=== PATIENT | female | born 1975 | race Caucasian/White ===

== ENCOUNTER 2020-07-01 09:18 | Outpatient (CLI) | payer OTHER, SELFPAY ==
--- NOTE | 2020-07-01 09:23 | MM_ITS ---
WS: [id number] BILATERAL DIGITAL SCREENING MAMMOGRAPHY WITH CAD CLINICAL INFORMATION: SCREENING HISTORY: Screening mammogram. No current complaints. COMPARISON: May 19, 2019 TECHNIQUE: Bilateral CC and MLO views. FINDINGS: The breasts are composed of heterogeneous fibroglandular density tissue, which can limit the detectio n of small underlying mass lesions. No suspicious mass, asymmetry, calcifications, or architectural d istortion. No evidence of malignancy. A few axillary tail lymph nodes. MM/[id number] IMPRESSION: BI-RADS: 2-Benign FOLLOW UP: 1 Year Follow-up Recommend return to annual screening mammography.
== END 2020-07-01 09:19 | disposition home or self-care (01) ==
PROVIDERS: Family Provider Family Medicine; PCP Family Medicine; Visit Provider Family Medicine
DX: Z12.31 Encounter for screening mammogram for malignant neoplasm of breast (principal)
CPT/HCPCS: 77067

== ENCOUNTER → 2021-04-21 11:44 | Outpatient (BNVA) | payer OTHER, SELFPAY | PROVIDERS: Family Provider Family Medicine; PCP Family Medicine; Visit Provider Surgery | DX: Z20.822 Contact with and (suspected) exposure to COVID-19 (principal) | CPT/HCPCS: 87635 ==

== ENCOUNTER 2021-04-24 09:05 | Day surgery (SDC) | payer OTHER, SELFPAY ==
[2021-04-21 14:10] VITALS: BMI 48.4
--- NOTE | 2021-04-24 09:14 | ANES.PREANE2 ---
Pre-Anesthetic Assessment Pre-Anesthetic Assessment: Height/Weight: Height 1.63 m Weight 127.913 kg Preop Diagnosis: hematochezia Proposed Procedure: Operation Date: 04/24/21 10:30 Proposed Procedures p Colonoscopy 98568 K92.1(Not Applicable) - Tommy Sampson MD Familial anesthetic complications: PONV w/ her one surgery (appendectomy) Was Beta Jennie taken within 24 hours: N/A Was Clonidine taken within 24 hours: N/A Last intake: > 8 hrs Social: Social History: Tobacco and No alcohol Exam: Pre-Anes Outpt Exam: alert, oriented x 3, clear to auscultation bilaterally and regular rate & rhythm Airway: MP: 3 Dentition: Full Additional comments: crowns Pulmonary: Pulmonary: Cough (dry smoker's cough) CV/HEM: CV/HEM: HTN Metabolic: Metabolic: DM, Hyperlipidemia and Morbid obesity Anesthetic Plan: ASA status: 3 Anesthesia: MAC Risk of > 500 ml blood loss (7ml/kg in children): No PFSH Anesthesia PFSH: Medical History (Updated 04/04/21 @ 11:35 by Tommy Sampson MD) Hemorrhoids Hyperlipidemia Hypertension Type 2 diabetes mellitus Surgical History (Updated 04/04/21 @ 10:37 by Tommy Sampson MD) History of appendectomy Family History (Updated 04/04/21 @ 10:28 by Yamileth Kaiser) Other CAD (coronary artery disease) Diabetes Lung disease Social History (Updated 04/04/21 @ 10:29 by Yamileth Kaiser) Smoking and tobacco status: current every day smoker Alcohol intake: current Alcohol intake frequency: holidays/special occasions only History of recent travel: No Data Anesthesia Cardiac Studies: No Data to Display
--- NOTE | 2021-04-24 09:50 | W.PM.OPSUD ---
Surgery/Procedure H&P Update DATE OF PROCEDURE: April 24, 2021 DATE H&P PERFORMED: 04/04/21 H&P UPDATE INFORMATION: I have reviewed H&P completed within last 30 days, I have examined patient prior to procedure and No changes to prior documentation PREOP DIAGNOSIS: screening colonoscopy PLANNED PROCEDURE: Operation Date: 04/24/21 10:30 Proposed Procedures p Colonoscopy 18595 K92.1(Not Applicable) - Tommy Sampson MD
[2021-04-24 09:53] VITALS: BP 171/99; PULSE 83; RESP 18; TEMP 36.5; O2SAT 95
[2021-04-24 10:00] LABS: OR HCG Qualitative Urine Negative (Negative)
[2021-04-24] MEDS: sodium chloride 0.9% 1,000 ML 30 ML IV (10:06)
[2021-04-24 10:23] LABS: Glucose Point of Care 212 mg/dL (70-110)
[2021-04-24 11:52] VITALS: BP 138/82; PULSE 71; RESP 16; TEMP 36.1; O2SAT 96
[2021-04-24 12:00] VITALS: BP 155/101; PULSE 70; RESP 18; O2SAT 96
== END 2021-04-24 12:22 | disposition home or self-care (01) ==
PROVIDERS: Anesthesiology; PCP Family Medicine; Visit Provider Surgery
PROC: 0DJD8ZZ Inspection of Lower Intestinal Tract, Via Natural or Artificial Opening Endoscopic (ICD-10-PCS; CPT 45378; principal; 2021-04-24 10:30)
DX: K92.1 Melena (principal); K57.30 Diverticulosis of large intestine without perforation or abscess without bleeding; K64.8 Other hemorrhoids; I10 Essential (primary) hypertension; E11.9 Type 2 diabetes mellitus without complications; E78.5 Hyperlipidemia, unspecified; E66.01 Morbid (severe) obesity due to excess calories; Z68.42 Body mass index [BMI] 45.0-49.9, adult; Z82.49 Family history of ischemic heart disease and other diseases of the circulatory system; Z83.3 Family history of diabetes mellitus; F17.210 Nicotine dependence, cigarettes, uncomplicated
CPT/HCPCS: 36416; 45378; 81025; 82962; 84703; 96360; 96361; J2704; J7030

== ENCOUNTER → 2021-05-29 12:50 | Outpatient (BNVA) | payer OTHER, SELFPAY | PROVIDERS: PCP Family Medicine; Visit Provider Surgery | DX: Z11.52 Encounter for screening for COVID-19 (principal); Z20.822 Contact with and (suspected) exposure to COVID-19 | CPT/HCPCS: 87635 ==

== ENCOUNTER 2021-06-02 07:53 | Day surgery (SDC) | payer OTHER, SELFPAY ==
[2021-05-30 15:57] VITALS: BMI 48.7
--- NOTE | 2021-06-02 08:07 | W.PM.OPSFHP ---
Same Day Surgery H&P Indication for Procedure/HPI DATE OF PROCEDURE: June 02, 2021 CHIEF COMPLAINT/INDICATIONFOR SURGICAL PROCEDURE: hemorrhoidectomy PREOP DIAGNOSIS: grade 4 hemorrhoids PLANNED PROCEDRUE: Operation Date: 06/02/21 09:10 Proposed Procedures p Hemorroidectomy 81851 K64.9(Not Applicable) - Tommy Sampson MD Medications/Allergies* Home Medications Medication Instructions Recorded Confirmed Type fluoxetine 20 mg capsule 40 mg PO DAILY 04/04/21 06/02/21 History glimepiride 1 mg tablet 1 mg PO BID tab 04/04/21 06/02/21 History metformin 500 mg tablet 1,000 mg PO BID tab 04/04/21 06/02/21 History simvastatin 10 mg tablet 10 mg PO DAILY 04/04/21 06/02/21 History Allergies/Adverse Reactions Allergy/AdvReac Type Severity Reaction Status Date / Time No Known Allergies Allergy Verified 05/30/21 15:50 Pertinent History/Comorbid Conditions* Medical History (Updated 04/04/21 @ 11:35 by Tommy Sampson MD) Hemorrhoids Hyperlipidemia Hypertension Type 2 diabetes mellitus Surgical History (Updated 04/24/21 @ 11:53 by Tommy Sampson MD) History of appendectomy Status post colonoscopy (04/24/21) Family History (Updated 04/04/21 @ 10:27 by Yamileth Kaiser) Diabetes CAD (coronary artery disease) Lung disease Social History Alcohol intake: current Alcohol intake frequency: holidays/special occasions only History of recent travel: No Pertinent Exam Findings alert, oriented x 3 and regular rate & rhythm Recommendations Surgery/Procedure today Coding Level of Care Code Acute Pharmacy Sales Assistant for [employer]
[2021-06-02 08:11] VITALS: BP 152/94; PULSE 77; RESP 18; TEMP 36.3; O2SAT 96
[2021-06-02 08:20] LABS: OR HCG Qualitative Urine Negative (Negative)
[2021-06-02 08:32] LABS: Glucose Point of Care 207 mg/dL (70-110)
[2021-06-02] MEDS: sodium chloride 0.9% 1,000 ML 30 ML IV (08:39)
[2021-06-02] MEDS: insulin regular-human 100 units/1 mL 10 UNIT IVP (08:54)
--- NOTE | 2021-06-02 09:12 | ANES.PREANE2 ---
Pre-Anesthetic Assessment Pre-Anesthetic Assessment: Height/Weight: Height 1.63 m Weight 128.82 kg Temp Pulse Resp BP Pulse Ox 97.4 F L 77 18 152/94 96 06/02/21 08:11 06/02/21 08:11 06/02/21 08:11 06/02/21 08:11 06/02/21 08:11 Preop Diagnosis: grade 4 hemorrhoids Proposed Procedure: Operation Date: 06/02/21 09:10 Proposed Procedures p Hemorroidectomy 18490 K64.9(Not Applicable) - Tommy Sampson MD Familial anesthetic complications: None Was Beta Jennie taken within 24 hours: N/A Was Clonidine taken within 24 hours: N/A Last intake: Intake Last Liquid Date 06/02/21 Last Liquid Time 00:00 Last Solid Date 06/02/21 Last Solid Time 00:00 Social: Social History: Tobacco and No alcohol Exam: Pre-Anes Outpt Exam: alert, oriented x 3, clear to auscultation bilaterally and regular rate & rhythm Airway: MP: 3 Dentition: Full Pulmonary: Pulmonary: Sleep apnea (?) CV/HEM: CV/HEM: HTN Metabolic: Metabolic: DM, Hyperlipidemia and Morbid obesity Anesthetic Plan: ASA status: 3 Anesthesia: General Risk of > 500 ml blood loss (7ml/kg in children): No Meds/Allergies Current Medications: Current Medications Generic Name Dose Route Start Last Admin Trade Name Freq PRN Reason Stop Dose Admin Sodium Chloride 1,000 mls @ 30 ml s/hr 06/02/21 08:00 06/02/21 08:39 Sodium Chloride 0.9% IV 06/03/21 07:59 30 mls/hr .Q24H MARICARMEN Administration PFSH Anesthesia PFSH: Medical History (Updated 04/04/21 @ 11:35 by Tommy Sampson MD) Hemorrhoids Hyperlipidemia Hypertension Type 2 diabetes mellitus Surgical History (Updated 04/24/21 @ 11:53 by Tommy Sampson MD) History of appendectomy Status post colonoscopy (04/24/21) Family History (Updated 04/04/21 @ 10:28 by Yamileth Kaiser) Other CAD (coronary artery disease) Diabetes Lung disease Social History (Updated 04/04/21 @ 10:29 by Yamileth Kaiser) Alcohol intake: current Alcohol intake frequency: holidays/special occasions only History of recent travel: No Data Anesthesia Other Labs: Laboratory Results - last 48 hr 06/02/21 06/02/21 08:18 08:28 POC Glucose 207 H Urine HCG, Qual Negative Cardiac Studies: No Data to Display
[2021-06-02 10:26] VITALS: BP 126/77; PULSE 78; RESP 18; TEMP 36.3; O2SAT 92
[2021-06-02 10:30] VITALS: BP 126/80; PULSE 78; RESP 18; TEMP 36.3; O2SAT 92
[2021-06-02 10:35] VITALS: BP 122/77; PULSE 73; RESP 17; O2SAT 96
[2021-06-02 10:41] LABS: Glucose Point of Care 241 mg/dL (70-110)
[2021-06-02 10:51] VITALS: BP 140/89; PULSE 71; RESP 18; TEMP 36.2; O2SAT 92
[2021-06-02] MEDS: HYDROcodone-acetaminophen 5-325 mg Tablet 1 TAB PO (11:10)
[2021-06-02 11:16] VITALS: BP 141/92; PULSE 74; RESP 18; TEMP 36.3; O2SAT 94
--- NOTE | 2021-06-02 11:45 | PM.OP ---
Operative Report Date of procedure: June 02, 2021 Pre-op Diagnosis: grade 4 hemorrhoids Post-op Diagnosis: Grade 4 hemorrhoids x3 Procedure Done: Hemorrhoidectomy x3 Specimens removed/disposition: Hemorrhoidal tissue Surgeon: Tommy Sampson Anesthesia: General Condition: stable Disposition: PACU Procedure: The patient was taken to the operating room and intubated under general anesthesia after IV antibiotic had been administered and placed in a prone jackknife position. The buttocks were taped apart. The perineum was prepped and draped in a sterile manner. A perianal block was performed using 10 cc of Exparel mixed with 10 cc of 0.5% Marcaine mixed with 10 cc of saline. Anoscope was introduced to examine the rectum and anal canal and 3 hemorrhoid pedicles were identified. The pedicle on the right side was grasped with Allis clamps and a skin incision was made from the perianal skin to the anal verge and the plane identified superficial to the internal sphincter muscle and the external and internal hemorrhoids were excised with an energy device. The pedicle on the left side was grasped with Allis clamps and a skin incision was made from the perianal skin to the anal verge and the plane identified superficial to the internal sphincter muscle and the external and internal hemorrhoids were excised with an energy device. The pedicle on the anterior aspect was grasped with Allis clamps and a skin incision was made from the perianal skin to the anal verge and the plane identified superficial to the internal sphincter muscle and the external and internal hemorrhoids were excised with an energy device. Hemostasis ensured and a Adaptic gauze soaked in Vaseline and placed within the anal canal. Dressings were applied and the patient was extubated and transferred to recovery room in stable condition.
--- NOTE | 2021-06-02 14:50 | ANE.PACU2 ---
Inpatient post-anesthesia follow up: Airway intact: Yes Vital signs: Temperature 97.3 F Pulse Rate 74 Respiratory Rate 18 Blood Pressure 141/92 Pulse Oximetry 94 Oxygen Delivery Me thod Room Air Oxygen Flow Rate 3 Fraction of Inspir ed Oxygen Hydration adequate: Yes Nausea and vomiting: No Pain level: 2 Mental status: Baseline
== END 2021-06-02 11:25 | disposition home or self-care (01) ==
PROVIDERS: Anesthesiology; PCP Family Medicine; Visit Provider Surgery
PROC: (CPT 46260; principal; 2021-06-02 09:00)
DX: K64.3 Fourth degree hemorrhoids (principal); I10 Essential (primary) hypertension; E11.9 Type 2 diabetes mellitus without complications; Z79.84 Long term (current) use of oral hypoglycemic drugs; Z90.89 Acquired absence of other organs; Z83.3 Family history of diabetes mellitus
CPT/HCPCS: 46260; 36416; 82962; 84703; 88304; C9290; J0690; J1815; J2405; J2704; J2710; J3010; J3490; J7030

== ENCOUNTER 2021-06-27 20:00 | Outpatient (CLI) | payer OTHER, SELFPAY | END 2021-06-27 20:01 | disposition home or self-care (01) | LOC: SLEEP 06-28 04:22 | PROVIDERS: PCP Family Medicine; Visit Provider Family Medicine | DX: G47.10 Hypersomnia, unspecified (principal); R06.83 Snoring; R53.83 Other fatigue; G47.33 Obstructive sleep apnea (adult) (pediatric) | CPT/HCPCS: 95810 ==

== ENCOUNTER 2021-07-15 11:57 | Outpatient (CLI) | payer OTHER, SELFPAY ==
--- NOTE | 2021-07-15 12:02 | MM_ITS ---
WS: [id number] BILATERAL SCREENING DIGITAL MAMMOGRAM WITH CAD HISTORY: SCREENING COMPARISON: 07/01/2020 and 05/19/2019 Bilateral CC and MLO views submitted. Computer aided detection analyzed. Breast composition: The breasts are heterogeneously dense, which may obscure small masses. No suspici ous masses, microcalcifications or architectural distortion. MM/[place] [id number] IMPRESSION: BI-RADS: 1-Negative FOLLOW UP: 1 Year Follow-up
== END 2021-07-15 11:58 | disposition home or self-care (01) ==
LOC: RADSHAW 12:02
PROVIDERS: PCP Family Medicine; Visit Provider Family Medicine
DX: Z12.31 Encounter for screening mammogram for malignant neoplasm of breast (principal)
CPT/HCPCS: 77067

== ENCOUNTER 2022-06-11 20:00 | Outpatient (CLI) | payer OTHER, SELFPAY | END 2022-06-11 20:01 | disposition home or self-care (01) | LOC: SLEEP 06-12 06:37 | PROVIDERS: PCP Family Medicine; Visit Provider Family Medicine | DX: G47.33 Obstructive sleep apnea (adult) (pediatric) (principal) | CPT/HCPCS: 95811 ==

== ENCOUNTER 2022-07-20 12:07 | Outpatient (CLI) | payer OTHER, SELFPAY ==
--- NOTE | 2022-07-20 12:13 | MM_ITS ---
WS: [id number] BILATERAL SCREENING DIGITAL TOMOSYNTHESIS MAMMOGRAM WITH CAD HISTORY: SCREENING COMPARISON: 07/15/2021, 07/01/2020 and 05/19/2019 Bilateral CC and MLO views with tomosynthesis and synthetic mammography submitted. Computer aided det ection analyzed. Breast composition: The breasts are heterogeneously dense, which may obscure small masses. No suspici ous masses, microcalcifications or architectural distortion. Asymmetries in the anterior LEFT breast are stable. MM/[place] [id number] IMPRESSION: BI-RADS: 2-Benign FOLLOW UP: 1 Year Follow-up
== END 2022-07-20 12:08 | disposition home or self-care (01) ==
LOC: RAD 12:08
PROVIDERS: PCP Family Medicine; Visit Provider Family Medicine
DX: Z12.31 Encounter for screening mammogram for malignant neoplasm of breast (principal)
CPT/HCPCS: 77063; 77067

== ENCOUNTER 2023-12-14 09:26 | Outpatient (CLI) | payer OTHER, SELFPAY ==
--- NOTE | 2023-12-14 09:30 | MM_ITS ---
WS: [id number] BILATERAL 3D TOMOSYNTHESIS DIGITAL SCREENING MAMMOGRAPHY WITH CAD CLINICAL INFORMATION: SCREENING HISTORY: Screening mammogram. No current complaints. COMPARISON: 2022 TECHNIQUE: Bilateral CC and MLO views. FINDINGS: The breasts are composed of heterogeneous fibroglandular density tissue, which can limit the detectio n of small underlying mass lesions. Few incidental punctate calcifications. Clustered calcifications anterior RIGHT breast. Recommend spot modification views in further evaluation. MM/[place] [id number] IMPRESSION: BI-RADS: 0-Incomplete: Need additional imaging evaluation FOLLOW UP: Need Additional Imaging Clustered calcifications anterior RIGHT breast. Recommend spot modification vie ws in further evaluation.
== END 2023-12-14 09:27 | disposition home or self-care (01) ==
LOC: MOBLMAM 09:29
PROVIDERS: PCP Family Medicine; Visit Provider Family Medicine
DX: Z12.11 Encounter for screening for malignant neoplasm of colon (principal); R92.323 Mammographic fibroglandular density, bilateral breasts
CPT/HCPCS: 77063; 77067

== ENCOUNTER 2024-01-06 14:55 | Outpatient (CLI) | payer OTHER, SELFPAY ==
--- NOTE | 2024-01-06 15:00 | MM_ITS ---
WS: [id number] RIGHT 3D TOMOSYNTHESIS DIGITAL MAMMOGRAPHY WITH CAD CLINICAL INFORMATION: ABNORMAL MAMMOGRAM HISTORY: Additional views calcifications. COMPARISON: 2023 TECHNIQUE: 3 views of the right breast were obtained. FINDINGS: The right breast is composed of heterogeneous fibroglandular density tissue, which can limit the dete ction of small underlying mass lesions. Again seen are the clustered calcifications anterior RIGHT br east. These are very faint and punctate in appearance today. Recommend 6-month follow-up to confirm s tability. MM/[place] [id number] IMPRESSION: BI-RADS: 3-Probably Benign FOLLOW UP: 6 Month Follow-up Recommend 6-month follow-up RIGHT breast diagnostic mammography with spot magni fication views.
== END 2024-01-06 14:56 | disposition home or self-care (01) ==
PROVIDERS: PCP Family Medicine; Visit Provider Family Medicine
DX: R92.8 Other abnormal and inconclusive findings on diagnostic imaging of breast (principal); R92.333 Mammographic heterogeneous density, bilateral breasts; R92.1 Mammographic calcification found on diagnostic imaging of breast
CPT/HCPCS: 77061; G0279

== ENCOUNTER 2024-07-20 09:16 | Outpatient (CLI) | payer OTHER, SELFPAY ==
--- NOTE | 2024-07-20 09:29 | MM_ITS ---
WS: [id number] RIGHT 3D TOMOSYNTHESIS DIGITAL MAMMOGRAPHY WITH CAD CLINICAL INFORMATION: 6 MO FU CALCS HISTORY: 6-month follow-up COMPARISON: 2023 TECHNIQUE: 3 views of the right breast were obtained. FINDINGS: The right breast is composed of heterogeneous fibroglandular density tissue, which can limit the dete ction of small underlying mass lesions. Again seen are the clustered calcifications anterior RIGHT br east. These are very faint and punctate in appearance. These are unchanged since 12/14/2023. Recommend additional 6-month follow-up RIGHT breast diagnostic mammography with spot magnification views. MM/MM diag RT tomosynthesis [id number] IMPRESSION: DENSITY: The breasts are heterogeneously dense, which may obscure small masses. BI-RADS: 3 - Probably Benign FOLLOW UP: 6 Month Follow-up Recommend 6-month follow-up RIGHT breast diagnostic mammography with spot magni fication views.
== END 2024-07-20 09:17 | disposition home or self-care (01) ==
LOC: RAD 09:18
PROVIDERS: PCP Family Medicine; Visit Provider Family Medicine
DX: R92.8 Other abnormal and inconclusive findings on diagnostic imaging of breast (principal); R92.333 Mammographic heterogeneous density, bilateral breasts; R92.1 Mammographic calcification found on diagnostic imaging of breast
CPT/HCPCS: 77061; G0279

== ENCOUNTER 2025-02-21 10:01 | Outpatient (CLI) | payer OTHER, SELFPAY ==
[2025-02-21 11:21] LABS: Estmated Average Glucose 214; Hemoglobin A1C 9.1 % (4.0-6.0)
[2025-02-21 11:23] LABS: Creatinine Urine, Random 91 mg/dL (28-217); Microalbum Creatinine Ratio Ur 11 mg/dL (0-20)
[2025-02-21 11:24] LABS: Alanine Aminotransferase 13 U/L (0-33); Albumin Level 4.2 g/dL (3.5-5.2); Alkaline Phosphatase 131 U/L (35-105); Anion Gap 17.4 (5-19); Aspartate Amino Transferase 18 U/L (0-32); Blood Urea Nitrogen 17 mg/dL (6-20); Calcium 9.2 mg/dL (8.5-10.5); Carbon Dioxide 23 mmol/L (22-29); Chloride 101 mmol/L (98-107); Cholesterol 159 mg/dL (0-200); Globulin 2.9 g/dL (1.3-4.6); Glucose 200 mg/dL (65-115); HDL Cholesterol 43 mg/dL (60-100); Osmolality Calculated 291 mOsm/kg (285-295); Potassium 4.4 mmol/L (3.5-5.1); Sodium 137 mmol/L (136-145); Total Protein 7.1 g/dL (6.6-8.7); Triglycerides 187 mg/dL (0-150)
== END 2025-02-21 10:02 | disposition home or self-care (01) ==
PROVIDERS: PCP Family Medicine; Visit Provider Internal Medicine
DX: E11.9 Type 2 diabetes mellitus without complications (principal)
CPT/HCPCS: 36415; 80053; 80061; 82044; 83036